=== PATIENT | male | born 1960 | race Caucasian/White ===

== ENCOUNTER 2019-06-02 18:43 | Emergency (ER) | payer OTHER ==
[2019-06-02] MEDS ORDERED: ACET/COD 300 MG/30 MG STARTER PACK 6 TAB BTL PO STA (19:15)
[2019-06-02] MEDS ORDERED: ACETAMINOPHEN TAB 325 MG TAB PO STA (19:15)
--- NOTE | 2019-06-02 19:29 | ED ---
General Adult HPI - General Chief complaint: Fall Stated complaint: Fall, Leg, rib & shoulder pain Time Seen by Provider: 06/02/19 18:58 Source: patient, RN notes reviewed, old records reviewed Mode of arrival: ambulatory Limitations: no limitations - History of Present Illness Initial comments: 59-year-old male patient with no pertinent past month history presents to ED chief complaint of fall. Patient reports that he was walking [place] when he fell. Patient reports that he landed on his right shoulder. Denies any direct trauma to head or neck. Patient chief complaint is pain and right shoulder right ribs region. Pain in left hamstring region. Patient reports some mild neck pain. Reports a very mild dull headache. Denies any use of blood thinners. During triage patient reports that he is recently exiting a difficult relationship with his . Patient reports that he has had fleeting suicidal thoughts denies any plan, denies any actions to hurt himself or others. Systemic: Pt denies fatigue, fever/chills, rash. Pt denies weakness, night sweats, weight loss. Neuro: Pt denies headache, visual disturbances, syncope or pre-syncope. HEENT: Pt denies ocular discharge or irritation, otalgia, rhinorrhea, pharyngitis or notable lymphadenopathy. Cardiopulmonary: Pt denies chest pain, SOB, heart palpitations, dyspnea on e xertion. Abdominal/GI: Pt denies abdominal pain, n/v/d. : Pt denies dysuria, burning w/ urination, frequency/urgency. Denies new onset urinary or bowel incontinence. MSK: Pt denies loss of strength or function in extremities. Neuro: Pt denies new onset weakness, paresthesias. - Related Data Allergies Allergy/AdvReac Type Severity Reaction Status Date / Time clopidogrel [From Plavix] AdvReac thin blood Verified 06/02/19 18:57 Review of Systems ROS Statement: Those systems with pertinent positive or pertinent negative responses have been documented in the HPI. ROS Other: All systems not noted in ROS Statement are negative. Past Medical History Past Medical History: Hypertension Additional Past Medical History / Comment(s): intracranial aneursym, alban, hernia History of Any Multi-Drug Resistant Organisms: None Reported Additional Past Surgical History / Comment(s): vocal cords, intracranial aneuysm repair Past Psychological History: No Psychological Hx Reported Smoking Status: Former smoker Past Alcohol Use History: None Reported Past Drug Use History: Marijuana General Exam - General Exam Comments Initial Comments: Constitutional: NAD, AOX3, Pt has pleasant affect. HEENT: NC/AT, trachea midline, neck supple, no lymphadenopathy. Posterior pharynx non erythematous, without exudates. External ears appear normal, without discharge. Mucous membranes moist. Eyes PERRLA, EOM intact. There is no scleral icterus. No pallor noted. Cardiopulmonary: RRR, no murmurs, rubs or gallops, no JVD noted. Lungs CTAB in anterior and posterior chowdhury. No peripheral edema. Abdominal exam: Abdomen soft and non-distended. Abdomen non-tender to palpation in all 4 quadrants. Bowel sounds active in LLQ. No hepatosplenomegaly. No ecchymosis Neuro: CN II-XII intact. No nuchal rigidity. No raccon eyes, no edwards sign, no hemotympanum. No cervical spinal tenderness. MSK: Right shoulder mild tenderness to palpation anteriorly. Right ribs mildly tender to palpation. Left posterior hamstring mildly tender to palpation. No posterior calf tenderness bilaterally, homans sign negative bilaterally. Posterior tibialis and radial pulse +2 bilaterally. Sensation intact in upper and lower extremities. Full active ROM in upper and lower extremities, 5/5 stregnth. Limitations: no limitations Course Vital Signs 06/02/19 18:52 Temperature 98.4 F Pulse Rate 81 Respiratory 18 Rate Blood Pressure 132/88 O2 Sat by Pulse 99 Oximetry Medical Decision Making - Medical Decision Making 59-year-old male patient with no pertinent past month history presents to ED chief complaint of fall. Patient reports that he was walking on the [place] grass when he fell. Patient reports that he landed on his right shoulder. Denies any direct trauma to head or neck. Patient chief complaint is pain and right shoulder right ribs region. Pain in left hamstring region. Patient reports some mild neck pain. Reports a very mild dull headache. Denies any use of blood thinners. During triage patient reports that he is recently exiting a difficult relationship with his . Patient reports that he has had fleeting suicidal thoughts denies any plan, denies any actions to hurt himself or others. Patient's vital signs stable, afebrile. Physical exam displayed right shoulder mild tender palpation at AC joint. Posterior hamstring region mildly tender. Patient likely experiencing milder, clavicular sprain. Mild hamstring strain. Patient also evaluated by EPS. He was cleared for discharge and provided materials. Will be provided orthopedic follow up if symptoms persist. Will return to ER if condition worsens. Case discussed with Dr. Ag. Disposition Clinical Impression: Fall, Shoulder strain, Muscle strain Disposition: HOME SELF-CARE Condition: Stable Instructions (If sedation given, give patient instructions): Fall Prevention (ED), Muscle Strain (ED) Additional Instructions: Patient to adhere to previously discussed treatment plan and will take medication(s) as directed. Patient to follow up with PCP in 1-2 days. Patient to return to ED if symptoms do not improve. Follow up with primary care provider. Follow up with orthopedic consult if symptoms persist. Return to ER condition worsens. Is patient prescribed a controlled substance at d/c from ED?: No Referrals: Nonstaff,Physician [REFERRING] - 1-2 days Elizabeth Villa DO [Doctor of Osteopathic Medicine] - 1-2 days
--- NOTE | 2019-06-02 19:44 | XR ---
EXAMINATION TYPE: XR chest 2V DATE OF EXAM: 06/02/2019 COMPARISON: NONE HISTORY: Rib pain TECHNIQUE: Frontal and lateral views of the chest are obtained. FINDINGS: Heart and mediastinum are normal. Lungs are clear. Diaphragm is normal. There is minor spu rring in the thoracic spine. IMPRESSION: No active cardiopulmonary disease. No rib fracture seen.
--- NOTE | 2019-06-02 19:56 | XR ---
EXAMINATION TYPE: XR cervical spine comp DATE OF EXAM: 06/02/2019 COMPARISON: NONE HISTORY: Pain TECHNIQUE: 5 views FINDINGS: Cervical vertebra have normal alignment. There is a large hypertrophic anterior bridging os teophyte at C5-6. Posterior elements are intact. There are no cervical ribs. Atlantoaxial facet joint is normal. IMPRESSION: Spondylosis at C5-6 with large osteophyte. No fracture seen.
--- NOTE | 2019-06-02 19:57 | XR ---
EXAMINATION TYPE: XR femur LT DATE OF EXAM: 06/02/2019 COMPARISON: NONE HISTORY: Thigh pain TECHNIQUE: 4 views FINDINGS: The hip joint and knee joint appear intact. Joint spaces appear normal. There is no evidenc e of a fracture. IMPRESSION: Normal left femur.
--- NOTE | 2019-06-02 19:58 | XR ---
EXAMINATION TYPE: XR shoulder complete RT DATE OF EXAM: 06/02/2019 COMPARISON: NONE HISTORY: Shoulder pain TECHNIQUE: 3 views FINDINGS: There is some mild spurring at the AC joint. I see no fracture nor dislocation. Joint space s are fairly normal. IMPRESSION: Negative right shoulder exam.
[2019-06-02 21:48] VITALS: BP 137/87; PULSE 71; RESP 16; TEMP 98
== END 2019-06-02 21:47 | disposition home or self-care (01) ==
LOC: EC 18:43
DX: S46.911A Strain of unspecified muscle, fascia and tendon at shoulder and upper arm level, right arm, initial encounter (principal); S76.312A Strain of muscle, fascia and tendon of the posterior muscle group at thigh level, left thigh, initial encounter; R45.851 Suicidal ideations; M54.2 Cervicalgia; R51 Headache; R07.81 Pleurodynia; Z87.891 Personal history of nicotine dependence; Z88.8 Allergy status to other drugs, medicaments and biological substances; W01.0XXA Fall on same level from slipping, tripping and stumbling without subsequent striking against object, initial encounter; Y93.01 Activity, walking, marching and hiking
CPT/HCPCS: 71046; 72050; 82075; 99284